=== PATIENT | male | born 1965 | race Caucasian/White ===

== ENCOUNTER 2018-02-08 02:13 | Emergency (ER) | payer SELFPAY ==
[2018-02-08 02:21] VITALS: BP 151/80
[2018-02-08] MEDS ORDERED: KETOROLAC TROMETHAMINE INJ/PF 30 MG/1 ML SDV IV ONE (04:24)
[2018-02-08] MEDS ORDERED: MORPHINE SULFATE 10 MG/ML INJ IV ONE (04:24)
[2018-02-08] MEDS ORDERED: ONDANSETRON HCL INJ/PF 4 MG/2 ML SDV IV ONE (04:24)
[2018-02-08] MEDS ORDERED: NORMAL SALINE 1000 ML 1,000 ML IV ONE (04:24)
--- NOTE | 2018-02-08 04:28 | ER Document Report ---
ED GI/ - General Chief Complaint: Flank Pain Stated Complaint: BACK PAIN Time Seen by Provider: 02/08/18 04:16 Notes: Patient is a 52-year-old male comes emergency department for chief complaint of right flank pain and vomiting, pain is now radiating around to his mid to lower abdomen on the side, symptoms started suddenly at about midnight. Patient denies history of the same symptoms, he denies history of kidney stones, he denies trauma. He denies fever or chills. He takes no daily medications, denies any surgeries, denies any medical history. - Related Data Allergies/Adverse Reactions: No Known Allergies Allergy (Unverified 06/24/12 16:15) Past Medical History - General Information source: Patient - Social History Smoking Status: Never Smoker Drug Abuse: None Lives with: Alone Family History: Reviewed & Not Pertinent - Past Medical History Cardiac Medical History: Denies: Hx Coronary Artery Disease, Hx Hypertension Pulmonary Medical History: Denies: Hx Asthma Endocrine Medical History: Denies: Hx Diabetes Mellitus Type 1, Hx Diabetes Mellitus Type 2 Surgical Hx: Negative - Immunizations Hx Diphtheria, Pertussis, Tetanus Vaccination: Yes Review of Systems - Review of Systems Constitutional: No symptoms reported EENT: No symptoms reported Cardiovascular: No symptoms reported Respiratory: No symptoms reported Gastrointestinal: See HPI Genitourinary: See HPI Male Genitourinary: No symptoms reported Musculoskeletal: See HPI Skin: No symptoms reported Hematologic/Lymphatic: No symptoms reported Neurological/Psychological: No symptoms reported Physical Exam - Vital signs Vitals: Pulse Resp BP Pulse Ox 65 22 H 151/80 H 100 02/08/18 02:19 02/08/18 02:19 02/08/18 02:19 02/08/18 02:19 - Notes Notes: GENERAL: Patient mildly unkempt, on his side, appears to be uncomfortable HEAD: Normocephalic, atraumatic. EYES: Pupils equal, round, and reactive to light. Extraocular movements intact. ENT: Oral mucosa moist, tongue midline. NECK: Full range of motion. Supple. Trachea midline. LUNGS: Clear to auscultation bilaterally, no wheezes, rales, or rhonchi. No respiratory distress. HEART: Regular rate and rhythm. No murmur ABDOMEN: Soft, non-tender. Non-distended. Bowel sounds present in all 4 quadrants. EXTREMITIES: Moves all 4 extremities spontaneously. No edema, normal radial and dorsalis pedis pulses bilaterally. No cyanosis. BACK: no cervical, thoracic, lumbar midline tenderness. No saddle anesthesia, normal distal neurovascular exam. NEUROLOGICAL: Alert and oriented x3. Normal speech. [cranial nerves II through XII grossly intact]. PSYCH: Normal affect, normal mood. SKIN: Warm, dry, normal turgor. No rashes or lesions noted. Course - Re-evaluation Re-evalutation: Patient appears uncomfortable on initial evaluation, he complains of flank pain and abdominal pain, abdomen is very soft and benign, he does not have any overt CVA tenderness, no midline tenderness, no signs of trauma, no saddle anesthesia , normal neurovascular exam. Vital signs unremarkable. Because of reported syndrome symptoms was sudden onset treated patient for suspected kidney stone, CBC shows mild leukocytosis with elevation of neutrophils but no bandemia, chemistry unremarkable. Urinalysis is actually completely unremarkable other than a few ketones. CAT scan showing no passing stone or acute abnormality. Appendix not definitely visualized. Repeat abdominal exam does not suggest appendicitis. Patient is now calm and relaxed. Denies any current symptoms. CAT scan does show some chronic back degenerative changes, he was provided with a copy of this. Patient states he urinated a couple of times in the lobby, thinks he might have passed a stone. Nonspecific given his workup. Discussed this with patient. Discussed symptoms of developing appendicitis, discussed return precautions detail. Patient states satisfaction and agreement. Stable at time of discharge. - Vital Signs Vital signs: Temp Pulse Resp BP Pulse Ox 65 22 H 151/80 H 100 02/08/18 02:19 02/08/18 02:19 02/08/18 02:19 02/08/18 02:19 - Laboratory Result Diagrams: 02/08/18 04:52 02/08/18 04:52 Laboratory results interpreted by me: 02/08/18 02/08/18 04:52 05:53 WBC 12.5 H Seg Neutrophils % 87.8 H Lymphocytes % 6.2 L Absolute Neutrophils 10.9 H Urine Ketones 20 H Discharge - Discharge Clinical Impression: Right flank pain Vomiting Qualifiers: Vomiting type: unspecified Vomiting Intractability: non-intractable Nausea presence: with nausea Qualified Code(s): R11.2 - Nausea with vomiting, unspecified Condition: Stable Disposition: HOME, SELF-CARE Additional Instructions: Your symptoms are suggestive of a passing kidney stone but no stone is seen on CAT scan and there is no blood in your urine. You may have passed one earlier but this is not determined. Remaining workup does not show any concerning findings. Examination does not suggest appendicitis at this time. Symptoms should resolve, take Toradol if needed for pain, you were given morphine and Toradol during your stay here tonight. Return if you worsen in anyway including returned pain of your abdomen, fever, vomiting, swelling of the abdomen, or any other concerning or worsening symptoms. Prescriptions: Ketorolac Tromethamine [Toradol 10 mg Tablet] 10 mg PO Q8HP PRN #24 tablet PRN Reason: Referrals: LOCAL[facility],NO [Primary Care Provider] - Follow up as needed
--- NOTE | 2018-02-08 04:50 | RADIOLOGY REPORT (SQ) ---
EXAM DESCRIPTION: CT ABDOMEN WITHOUT IV CONTRAST COMPLETED DATE/TME: 02/08/2018 04:25 CLINICAL HISTORY: 52 years Male, right flank pain, vomiting Comparison: None. Technique: No contrast. Coronal and sagittal reformat. This exam was performed according to our departmental dose-optimization program, which includes automated exposure control, adjustment of the mA and/or kV according to patient size and/or use of iterative reconstruction technique.[facility]: Dose Right [facility]: CareDose [facility]: Dose Right [facility]: Teradose 4D [facility]: [employer] LIMITATIONS: None Findings: Prominent notochordal remnants of the inferior endplates at the thoracolumbar junction, mild lower lumbar spondylosis, atherosclerosis. No evidence of appendicitis, appendix not definitively discerned, Unenhanced lower thorax, abdominopelvic structures, and musculoskeleton appear otherwise grossly unremarkable. Impression: No acute findings.
[2018-02-08 05:15] LABS: ABSOLUTE LYMPHOCYTES (AUTO) 0.8 10^3/uL (0.5-4.7); ABSOLUTE MONOCYTES (AUTO) 0.7 10^3/uL (0.1-1.4); ABSOLUTE NEUT (AUTO) 10.9 10^3/uL (1.7-8.2); BASOPHILS % (AUTO) 0.1 % (0-2); EOSINOPHILS % (AUTO) 0.1 % (0-6); HEMATOCRIT 46.1 % (37.9-51.0); HEMOGLOBIN 15.9 g/dL (13.5-17.0); LYMPHOCYTES % (AUTO) 6.2 % (13-45); MEAN CORPUSCULAR HEMOGLOBIN 32.9 pg (27.0-33.4); MEAN CORPUSCULAR HGB CONC 34.4 g/dL (32.0-36.0); MEAN CORPUSCULAR VOLUME 96 fl (80-97); MONOCYTES % (AUTO) 5.8 % (3-13); PLATELET COUNT 285 10^3/uL (150-450); RED BLOOD COUNT 4.82 10^6/uL (4.35-5.55); RED CELL DISTRIBUTION WIDTH 13.1 % (11.5-14.0); SEGMENTED NEUTROPHILS % (AUTO) 87.8 % (42-78); TOTAL CELLS COUNTED % (AUTO) 100 %; WHITE BLOOD COUNT 12.5 10^3/uL (4.0-10.5)
[2018-02-08 05:34] LABS: ALANINE AMINOTRANSFERASE 28 U/L (21-72); ALBUMIN 4.3 g/dL (3.5-5.0); ALKALINE PHOSPHATASE 97 U/L (38-126); ANION GAP 12 (5-19); ASPARTATE AMINO TRANSFERASE 25 U/L (17-59); BILIRUBIN,DIRECT 0.4 mg/dL (0.0-0.4); BILIRUBIN,TOTAL 0.5 mg/dL (0.2-1.3); BLOOD UREA NITROGEN 10 mg/dL (7-20); CALCIUM 9.7 mg/dL (8.4-10.2); CARBON DIOXIDE 27 mmol/L (22-30); CHLORIDE 105 mmol/L (98-107); GLUCOSE 98 mg/dL (75-110); POTASSIUM 4.8 mmol/L (3.6-5.0); SODIUM 143.8 mmol/L (137-145); TOTAL PROTEIN 7.1 g/dL (6.3-8.2)
[2018-02-08 06:33] LABS: APPEARANCE,URINE CLEAR; BILIRUBIN,URINE NEGATIVE (NEGATIVE); COLOR,URINE YELLOW; GLUCOSE, URINE NEGATIVE (NEGATIVE); KETONES,URINE 20 mg/dL (NEGATIVE); LEUKOCYTE ESTERASE,URINE NEGATIVE (NEGATIVE); NITRITE,URINE NEGATIVE (NEGATIVE); PROTEIN,URINE NEGATIVE (NEGATIVE); URINE SPECIFIC GRAVITY 1.013; UROBILINOGEN,URINE NEGATIVE mg/dL (<2.0)
== END 2018-02-08 07:08 | disposition home or self-care (01) ==
LOC: ER 02:13
DX: R10.9 Unspecified abdominal pain (principal); R11.2 Nausea with vomiting, unspecified
CPT/HCPCS: 99284; 96361; 96374; 96375; 36415; 85025; 80053; 81001; 76380; J1885; J2270; J2405; J7030